=== PATIENT | female | born 1940 | race Caucasian/White ===

== ENCOUNTER 2023-03-23 10:14 | Outpatient (CLI) | payer MEDICARE, BC, SELFPAY ==
[2023-03-23 10:31] LABS: Pathologist Comment May follow
[2023-03-23 10:59] LABS: AUTO B FLUID DILUENT BKGD CT WBC <0.1 RBC <0.01 (W<.1,R<.01)
[2023-03-23 11:00] LABS: Color / Synovial Fluid Straw (Pale Yellow); Source / Synovial Fluid RIGHT KNEE; Source- Body Fluid SYNOVIAL; Viscosity / Synovial Fluid Sl. Viscous (HIGH)
[2023-03-23 11:01] LABS: Appearance /Synovial Fluid Cloudy (CLEAR)
[2023-03-23 11:04] LABS: Synovial Fld Mononuclear WBC # 0.052 10^3/ul; Synovial Fld Mononuclear WBC % 82.5 %; Synovial Fld Polynuclear WBC # 0.011 10^3/uL; Synovial Fld Polynuclear WBC % 17.5 %
[2023-03-23 11:06] LABS: RBC /Synovial Fluid 0.003 10^6/uL (0)
[2023-03-23 11:23] LABS: CRYSTALS, BODY FLUID NO CRYSTALS SEEN
[2023-03-23 11:50] LABS: Lymph 29 %; Monocyte /Synovial Fluid 58 %; Neutrophil 12 % (0-25); Other Cell /Synovial Fluid 1 %
[2023-03-23 11:51] LABS: Body Fluid QC Type(s) BF1Q,BF2Q
[2023-03-27 12:39] LABS: Pathologist Review Reviewed
== END 2023-03-23 23:59 | disposition home or self-care (01) ==
LOC: LABSPEC 10:25
PROVIDERS: PCP Internal Medicine; Referring Provider Internal Medicine Rheumatology; Visit Provider Internal Medicine Rheumatology
DX: M06.4 Inflammatory polyarthropathy (principal); M25.561 Pain in right knee
CPT/HCPCS: 87070; 87075; 87205; 89050; 89051; 89060